=== PATIENT | female | born 1980 | race Caucasian/White ===

== ENCOUNTER 2017-03-20 20:19 | Observation (INO) ==
--- NOTE | 2017-03-20 20:51 | Emergency Department Note ---
Disposition Clinical Impression: DVT (deep venous thrombosis) Qualifiers: DVT location: lower extremity Affected thrombotic vein of extremity: unspecified vein of extremity Chronicity: acute Laterality: left Qualified Code( s): I82.402 - Acute embolism and thrombosis of unspecified deep veins of left lower extremity Disposition: Admitted As Inpatient Condition: Good Referrals: NONE,PCP [Primary Care Provider] - Kayleen Scanlon MD [Family Provider] - Forms: ED Satisfaction Letter Time of Disposition: 21:48 Extremity Problem HPI - General Chief complaint: ED Extremity Problem,Nontraumatic Stated complaint: "Left Leg Red Swollen/Has Factor 5 Clot Disorder" Time Seen by Provider: 03/20/17 20:33 Source: patient Limitations: no limitations Nursing Notes Reviewed: Yes Vital Signs Reviewed: Yes - History of Present Illness HPI Narrative: 36 year old female presnts to the ED with complaints of LLE swelling and pain that started a few weeks ago. Angel has factor V leiden and states that about 4-5 months ago she took herself off the coumadin therapy that she was taking because she got tired of always going to the doctors to check her INR. Angel denies chest pain or shortness of breath and denies any history of PEs. Although she has had DVTs in the past. She states that her swelling and pain started in her left ankle and now it has gone into her left upper thigh. She is concerend for a DVT. Pain Scale: 8 - Related Data Allergies Allergy/AdvReac Type Severity Reaction Status Date / Time No Known Allergies Allergy Verified 03/20/17 20:30 Constitutional: Denies: fever, chills, weakness, weight change Eyes: Denies: eye pain, eye discharge, vision change ENT ED: Denies: ear pain, throat pain, dental pain, hearing loss, epistaxis, congestion, dysphagia Cardiovascular: Denies: chest pain, palpitations, dyspnea on exertion, edema, syncope Respiratory: Denies: cough, dyspnea, wheezes, hemoptysis, stridor Gastrointestinal: Denies: abdominal pain, nausea, vomiting, diarrhea, constipation, hematemesis, melena, hematochezia Genitourinary: Denies: dysuria, frequency, hematuria, discharge Musculoskeletal: Reports: other (LLE swelling). Denies: back pain, neck pain, arthralgia, myalgia Integumentary: Denies: rash, abrasion, lesions Neurological: Denies: headache, weakness, numbness, paresthesias, confusion, abnormal gait, vertigo Psychiatric: Denies: anxiety, depression, suicidal thoughts, homicidal thoughts , auditory hallucinations, visual hallucinations Endocrine: Denies: fatigue Hematological/Lymphatic: Denies: easy bleeding, easy bruising Allergic/Immunologic: Denies: facial swelling, urticaria Past Medical History - Past Medical History Medical history: Reports: hypertension, other Psychiatric history: Reports: anxiety, depression [employer] history: Reports: non-contributory - Social History Smoking Status: Current every day smoker Smokeless Tobacco Status: No Alcohol use: Reports: none Drug use: Reports: none Physical Exam - General Limitations: no limitations General appearance: alert, in no apparent distress - Head Head exam: atraumatic, normocephalic, normal inspection - Eye Eye exam: Present: normal appearance, PERRL, EOMI - Expanded Eye Exam Pupils: Left: reactive - ENT ENT exam: normal exam, normal oropharynx, mucous membranes moist - Expanded ENT Exam External ear exam: Present: normal external inspection Mouth exam: Present: normal external inspection Teeth exam: Present: normal inspection Throat exam: Present: normal inspection - Neck Neck exam: Present: normal inspection, full ROM, trachea midline - Chest Chest inspection: Present: normal inspection, symmetric chest wall rise - Respiratory Respiratory exam: Present: normal lung sounds bilaterally - Cardiovascular Cardiovascular exam: Present: regular rate, normal rhythm, normal heart sounds - Abdominal Exam Abdominal exam: Present: soft, Non-Tender. Absent: tenderness, distention, guarding, rebound, rigidity - Extremities Exam Extremities exam: Present: normal inspection, full ROM. Absent: tenderness, pedal edema - Expanded Upper Extremity Exam Shoulder exam: Present: normal inspection, full ROM Arm exam: Present: normal inspection, full ROM Elbow exam: Present: normal inspection, full ROM Forearm/Wrist exam: Present: normal inspection, full ROM Hand exam: Present: normal inspection, full ROM Vascular exam: Normal: capillary refill, radial pulse - Expanded Lower Extremity Exam Hip/Pelvis exam: Present: normal inspection, full ROM Upper leg exam: Present: normal inspection, full ROM Knee exam: Present: normal inspection, full ROM Lower leg exam: Present: normal inspection, full ROM, swelling (LLE starting at ankle to the knee), Achilles tendon intact. Absent: tenderness, Homans' sign Ankle exam: Present: normal inspection, full ROM Foot/toe exam: Present: normal inspection, full ROM 1 - healing scab Neurovascular/Tendon exam: Present: normal capillary refill, normal fine/light touch. Absent: pulse deficit, motor deficit, sensory deficit, tendon deficit, extremity cold to touch, foot drop Gait: observed and normal - Back Exam Back exam: Present: normal inspection, full ROM. Absent: tenderness - Neurological Exam Neurological exam: Present: alert, oriented X3 - Expanded Neurological Exam Patient oriented to: Present: person, place, time Speech: Present: fluid speech Coma Scale Eye Opening: Spontaneous Coma Scale Motor Response: Obeys Commands Coma Scale Verbal Response: Oriented Coma Scale Total: 15 - Psychiatric Psychiatric exam: Present: normal affect, normal mood - Skin Skin exam: Present: warm, dry, intact, normal color Course Course Narrative: we will do a DVT US rule out study. - Consultations Consultation #1: left superficial femoral and downward is occluded. I have updated patient on results. I have discussed case with Dr. Lora and he has accepted patient to his service. Heparin therapy started. Time: 21:47 Vital Signs Temperature 98.9 F 03/20/17 20:30 Pulse Rate 105 03/20/17 20:30 Respiratory Rate 16 03/20/17 20:30 Blood Pressure 165/88 03/20/17 20:30 O2 Sat by Pulse Oximetry 99 03/20/17 20:30 Temperature 98.9 F 03/20/17 20:30 Pulse Rate 105 03/20/17 20:30 Respiratory Rate 16 03/20/17 20:30 Blood Pressure 165/88 03/20/17 20:30 O2 Sat by Pulse Oximetry 99 03/20/17 20:30 Oxygen Delivery Oxygen Delivery Room Air
[2017-03-20] MEDS ORDERED: *HR* Heparin 5,000 UNIT/ML VIAL IVP PRN ×2 (21:31)
[2017-03-20] MEDS ORDERED: *HR* Heparin 5,000 UNIT/ML VIAL IVP ONE (21:31)
[2017-03-20] MEDS ORDERED: Heparin 25,000 UNIT/500 ML D5W 25,000 UNIT/500 ML MLS IVC SCH (21:45)
[2017-03-20 22:08] LABS: Hematocrit 42.3 % (35.3-44.9); Hemoglobin 14.5 g/dL (11.5-15.4); Mean Corpuscular HGB Conc 34.3 g/dL (31.6-35.5); Mean Corpuscular Hemoglobin 31.6 pg (28.0-33.3); Mean Corpuscular Volume 92.2 fL (83.0-100.0); Platelet Count 211 K/mcL (140-400); Red Blood Count 4.59 M/mcL (3.82-4.97); Red Cell Distribution Width 12.3 % (11.5-14.5)
--- NOTE | 2017-03-20 22:18 | Internal Med History&Physical ---
Date of Encounter: 03/20/17 Time of Encounter: 22:14 Assessment and Plan (1) DVT (deep venous thrombosis) Current visit: Yes Status: Acute Proximal unprovoked DVT related to factor 5 Leiden mutation. Discussed with the patient that she would need to be on anticoagulation for life. Patient had problems with Coumadin before as she did not want to get frequent INR checks. She also mentioned that she was having problems achieving target INR levels. We will get social work on consultation to see if it is possible that she gets one of the newer anticoagulants. For now will keep patient on high dose heparin drip. No clinical signs or symptoms suggest pulmonary embolism. Qualifiers: DVT location: lower extremity Affected thrombotic vein of extremity: unspecified vein of extremity Chronicity: acute Laterality: left Qualified Code(s): I82.402 - Acute embolism and thrombosis of unspecified deep veins of left lower extremity (2) Hypertension Current visit: Yes Status: Acute Lisinopril 5 mg daily. Qualifiers: Qualified Code(s): I10 - Essential (primary) hypertension Internal Medicine - H&P: HPI Chief complaint: left leg swelling History of present illness: Ms. Beckford is a 36 year old female with history of Factor 5 leiden mutation diagnosed 4 years ago and has been on Coumadin since then until 6 months ago when she stopped Coumadin as she did not want to get frequent INR checks, presented to emergency room today with a main component of left lower extremity swelling. She noted that approximately 2 weeks ago she started having pain in the left ankle region. Approximately a week ago she started having progressive swelling of the left lower extremities started extending upwards till her upper thigh so she was concerned that she is having a clock and presented to emergency room. She was found to have left-sided proximal DVT is extending from the superficial femoral vein down. She denies any chest pain shortness of breath or hemoptysis. She has no clear provoking factor. No recent prolonged car drive, overseas flight, hospitalization, trauma. She is not on any oral contraceptive pills. She does smoke one pack of cigarettes daily. Her father has also history of blood clots. Past Med Surg Social Fam HX - Past Medical History Medical history: hypertension, other Psychiatric history: anxiety, depression - Social History Smoking Status: Current every day smoker Smokeless Tobacco Status: No Alcohol use: none Drug use: none Internal Medicine - H&P: Meds 3 Allergy/AdvReac Type Severity Reaction Status Date / Time No Known Allergies Allergy Verified 03/20/17 20:30 All Systems PM: A 10-system review of systems was performed and is negative for pertinent findings except as documented above in the HPI. Review of systems: 10 point review of systems is negative except for HPI - Constitutional Vitals: Temp Pulse Resp BP Pulse Ox 98.9 F 105 16 165/88 99 03/20/17 20:30 03/20/17 20:30 03/20/17 20:30 03/20/17 20:30 03/20/17 20:30 Exam: General: Patient is A&O X3 Cardiac: normal S1, S2, no additional sounds or murmurs Chest: Clear to auscultation bilaterally Abdomen: soft, nontender, non distended, normal BS. Neuro: No focal deficits LE: Increased girth of Lsft lower extremity compared to right Internal Med - H&P Results - Labs CBC & Chem 7: 03/20/17 22:01 Labs: Short CBC 03/20/17 Range/Units 22:01 WBC 9.2 (4.3-11.1) K/mcL Hgb 14.5 (11.5-15.4) g/dL Hct 42.3 (35.3-44.9) % Plt Count 211 (140-400) K/mcL
[2017-03-20 22:22] LABS: Alanine Aminotransferase 10 Units/L (0-55); Albumin 3.8 g/dL (3.5-5.0); Albumin/Globulin Ratio 0.9 (1.1-2.2); Alkaline Phosphatase 138 Units/L (38-126); Aspartate Amino Transferase 17 Units/L (5-34); BUN/Creatinine Ratio 21 (6-26); Blood Urea Nitrogen 15 mg/dL (7-20); Calcium 9.8 mg/dL (8.6-10.8); Carbon Dioxide 27 mEq/L (19-29); Chloride 101 mEq/L (98-109); Globulin 4.2 g/dL (2.4-3.5); Glucose 85 mg/dL (70-99); Magnesium 1.7 mg/dL (1.6-2.6); Osmolality,Calculated 284 (280-300); Potassium 3.6 mEq/L (3.5-4.5); Sodium 137 mEq/L (136-145); eGFR For African Americans > 60 (> 60); eGFR For Non-African Americans > 60 (> 60)
[2017-03-20 22:24] LABS: Bilirubin,Total < 0.2 mg/dL (0.2-1.2)
[2017-03-20 22:28] LABS: Prothrombin Time 10.9 Seconds (9.4-12.1)
[2017-03-20 22:31] LABS: Activated Partial Thrombo Time 28.8 Seconds (26.0-36.0)
[2017-03-20] MEDS: Nicotine 21 MG PATCH.TD24 TD SCH (23:31)
[2017-03-21] MEDS: Nicotine 21 MG PATCH.TD24 TD SCH (07:24)
[2017-03-21 07:42] VITALS: BP 117/80
[2017-03-21] MEDS ORDERED: Famotidine 20 MG TABLET PO SCH (09:00)
[2017-03-21] MEDS ORDERED: *HR* Rivaroxaban 15 MG TABLET PO SCH (09:30)
--- NOTE | 2017-03-21 09:31 | Discharge Summary ---
Date of Encounter: 03/21/17 Time of Encounter: 09:28 - Discharge Diagnosis (1) DVT (deep venous thrombosis) Priority: Primary Status: Acute Qualifiers: DVT location: lower extremity Affected thrombotic vein of extremity: unspecified vein of extremity Chronicity: acute Laterality: left Qualified Code(s): I82.402 - Acute embolism and thrombosis of unspecified deep veins of left lower extremity (2) Hypertension Priority: Secondary Status: Chronic Qualifiers: Hypertension type: essential hypertension Qualified Code(s): I10 - Essential (primary) hypertension - Discharge Medications Prescriptions: Lisinopril [Zestril] 5 mg PO DAILY #30 tablet Rivaroxaban [Xarelto] 15 mg PO BID #41 tablet Rivaroxaban [Xarelto] 20 mg PO DAILY #30 tablet Home Medications: Lisinopril [Zestril] 5 mg PO DAILY #30 tablet 03/21/17 [Rx] Rivaroxaban [Xarelto] 15 mg PO BID #41 tablet 03/21/17 [Rx] Rivaroxaban [Xarelto] 20 mg PO DAILY #30 tablet 03/21/17 [Rx] Allergies/Adverse Reactions: 3 Allergy/AdvReac Type Severity Reaction Status Date / Time No Known Allergies Allergy Verified 03/20/17 22:33 Date of admission: 03/20/17 21:58 Primary care physician: PCP NONE Discharging clinician: Rachel Winkler Anticipated date of discharge: 03/21/17 - Patient Status Disposition: Home, Self-Care Condition: Good Functional capacity at discharge: independent ambulation Overall status at discharge: patient is progressing back to baseline - Discharge Instructions Instructions: Deep Venous Thrombosis (DC), Chronic Hypertension (DC) Follow Up With: Christy Curry CNP [Advanced Practice Nurse] - 03/27/17 1:00 pm NONE,PCP [Primary Care Provider] - (Wants to follow up with new PCP at [place]. Schedule follow up appointment in 1 week) Additional Instructions: Follow-up appointments: If there is not an appointment listed below, please call your physician and schedule a follow-up appointment. If you have congestive heart failure and your symptoms return, make an appointment with your physician. Medication List: Carry an up to date list of medications you are taking at all time. We have given you an updated medication list including any new medications that you have been prescribed. Please provide that list to your primary provider Symptoms: If your condition changes or you experience any of the following symptoms, notify your physician immediately: Unusual or worsening pain, fever, persistent nausea and vomiting, bleeding, increase in swelling (especially in your legs), sudden weight gain, extreme dizziness, chest pain, increased drainage or redness from a wound or incision. Go to the emergency department if you experience a problem with breathing. Weights: If you have a history of swelling or shortness of breath, weigh yourself daily and notify your physician if you have a weight gain of two or more pounds in one day or 5 or more pounds in a week. If you experience any of the warning signs for stroke: Sudden numbness or weakness of the face, arm or leg; especially on one side of the body, sudden confusion, trouble speaking or understanding, sudden trouble seeing in one or both eyes, sudden trouble walking, dizziness, loss of balance or coordination, sudden sever headache with no cause; Call 911 or go to the emergency room. Stroke is a medical emergency. Some risk factors for stroke: Age, cigarette smoking, diabetes, excessive alcohol consumption, family history , high blood pressure, overweight, physical inactivity, prior stroke, heart attack, diagnosis of carotid artery stenosis or other artery disease. If you smoke, STOP: Smoking or tobacco use significantly increases your risk of heart and lung disease. Your chance of disease greatly increases if you continue to smoke. For more information, call the [place] tobacco quit line for smoking cessation QUIT-NOW ( ) - Diet and Activity Activity: increase activity as tolerated Hospital course: Ms. Beckford is a 36 year old female patient with history of factor V Leiden mutation presented to the ER with complaints of pain and swelling in the left ankle region. She was found to have acute DVT in the left lower extremity and treated with intravenous heparin. This morning she is feeling much better. She was previously on Coumadin but had stopped taking it due to frequent blood draws. She is willing to take Xarelto instead. She will be provided with a prescription to take this medication beginning at 15 mg by mouth twice a day and then transitioning to 20 mg by mouth daily after 21 days. She will follow up with her primary care provider for further management. - Time Spent with Patient Total time spent providing and/or coordinating discharge services: Less than 30 minutes (25 min) - Constitutional Vitals: Temp Pulse Resp BP Pulse Ox 98.2 F 77 14 117/80 99 03/21/17 07:40 03/21/17 07:40 03/21/17 07:40 03/21/17 07:40 03/21/17 07:40 General appearance: Present: cooperative, A&O X 3, no acute distress, answers questions appropriately - Respiratory Respiratory exam: Present: CTAB. Absent: accessory muscle use, rales, rhonchi, wheezes - Cardiovascular Cardiovascular exam: Present: RRR, +S1, +S2. Absent: diastolic murmur, gallop, rubs, systolic murmur - Extremities Exam Extremities exam: Present: warm, radial pulses palpable and symmetrical. Absent : calf tenderness, cyanotic, pedal edema Additional comments: left calf swollen compared to right. Mild tenderness. No erythema. normal range of motion - Skin Skin exam: Present: dry, intact
== END 2017-03-21 12:50 | disposition home or self-care (01) ==
LOC: EMEROO 20:19 → 3ANU 20:19 → SUATTDRO 21:58 → 3ANU 22:33
PROVIDERS: ADMIT Hospitalist; ATTEND Internal Medicine